=== PATIENT | male | born 1985 | race Caucasian/White ===

== ENCOUNTER 2017-07-01 07:43 | Inpatient (IN) | payer MEDICAID ==
[~2017-07-01] VITALS: Ht 190.5 cm; Wt 113.3 kg
[~2017-07-01 07:43] MED LIST: AMLO5TAB2 PO; ASPI-621 PO; DOCU-131; FURO-92 PO; IBUP200C5; METO25TA35 PO; OXYC1TAB7 PO; PANT40TA5 PO; POTA20PI5 PO; RIVA20TA PO
[2017-07-01] MEDS ORDERED: MORPHINE SULFATE 4 MG/ML, 1ML IVPush PRN (09:00)
[2017-07-01] MEDS ORDERED: SODIUM CHLORIDE FLUSH 10ML SYR IVF ONE (09:00)
[2017-07-01] MEDS ORDERED: SODIUM CHLORIDE 0.9% 1,000ML IVBOLUS ONE (09:00)
[2017-07-01] MEDS ORDERED: ONDANSETRON 2MG/ML, 2ML IVPush ONE (09:00)
[2017-07-01 09:04] LABS: HEMATOCRIT 48.8 % (39.2-51.8); HEMOGLOBIN 16.6 g/dL (13.7-18.0); WHITE BLOOD COUNT 17.3 x10^3/uL (3.4-10)
[2017-07-01 09:15] LABS: ASPARTATE AMINO TRANSFERASE 34 U/L (15-37); BLOOD UREA NITROGEN 14 mg/dL (7-18)
[2017-07-01 09:19] LABS: PATH.CAST-FLAG NOT PRESENT; SPERM-FLAG NOT PRESENT; SRC-FLAG NOT PRESENT; XTAL-FLAG NOT PRESENT; YLC-FLAG NOT PRESENT
[2017-07-01] MEDS ORDERED: ASPIRIN 81 MG TABLET CHEW ONE (10:23)
[2017-07-01] MEDS ORDERED: ASPIRIN 81 MG TABLET CHEW PO ONE (10:30)
[2017-07-01 11:29] LABS: IS PT STATUS REG ER OR PRE ER? YES
[2017-07-01 13:30] VITALS: BP 142/80
[2017-07-01 13:32] VITALS: BP 142/80
[2017-07-01] MEDS ORDERED: MULT-464 PO (13:42)
[2017-07-01] MEDS ORDERED: NITROGLYCERIN 0.4 MG/SPRAY SL PRN (14:30)
[2017-07-01] MEDS ORDERED: morphine SULFATE 10 MG/ML, 1ML IV PRN (14:30)
[2017-07-01] MEDS ORDERED: NITROGLYCERIN 0.4 MG BOTTLE (25 TABS) SL PRN (14:30)
[2017-07-01] MEDS ORDERED: NITROGLYCERIN SINGLE TAB 0.4 MG SL PRN (14:30)
[2017-07-01] MEDS ORDERED: KETOROLAC 30 MG/1 ML IM PRN ×2 (14:30→15:00)
[2017-07-01] MEDS: ENOXAPARIN 40 MG/0.4 ML SQ SCH (15:48)
[2017-07-01 18:37] LABS: IS PT STATUS REG ER OR PRE ER? NO
[2017-07-01 20:48] VITALS: BP 146/82
[2017-07-01] MEDS: SODIUM CHLORIDE FLUSH 10ML SYR IVF SCH (22:00)
[2017-07-02 02:07] VITALS: BP 126/67
[2017-07-02 04:31] LABS: HEMOGLOBIN 15.4 g/dL (13.7-18.0); WHITE BLOOD COUNT 11.1 x10^3/uL (3.4-10)
[2017-07-02 04:39] LABS: ASPARTATE AMINO TRANSFERASE 48 U/L (15-37); BLOOD UREA NITROGEN 17 mg/dL (7-18)
[2017-07-02 07:39] VITALS: BP 127/84
[2017-07-02] MEDS: METOPROLOL TARTRATE 25 MG TABLET PO SCH (08:57)
[2017-07-02] MEDS: MULTIVITAMIN 1 TABLET PO SCH (08:57)
[2017-07-02] MEDS: SODIUM CHLORIDE FLUSH 10ML SYR IVF SCH ×2 (08:57→20:35)
[2017-07-02] MEDS: AMLODIPINE 5 MG TABLET PO SCH (08:57)
[2017-07-02] MEDS: ASPIRIN 325 MG TABLET EC PO SCH (08:57)
[2017-07-02 10:59] LABS: IS PT STATUS REG ER OR PRE ER? NO
[2017-07-02 13:37] VITALS: BP 111/67
[2017-07-02] MEDS: ENOXAPARIN 40 MG/0.4 ML SQ SCH (13:46)
[2017-07-02 20:39] VITALS: BP 146/84
[2017-07-03 02:59] VITALS: BP 118/71
[2017-07-03 06:57] LABS: HEMATOCRIT 46.2 % (39.2-51.8); HEMOGLOBIN 15.7 g/dL (13.7-18.0); WHITE BLOOD COUNT 10.4 x10^3/uL (3.4-10)
[2017-07-03] MEDS ORDERED: REGADENOSON 0.4 MG/5 ML SYRINGE ONE (08:06)
[2017-07-03] MEDS: AMLODIPINE 5 MG TABLET PO SCH (11:46)
[2017-07-03] MEDS: ASPIRIN 325 MG TABLET EC PO SCH (11:46)
[2017-07-03] MEDS: MULTIVITAMIN 1 TABLET PO SCH (11:46)
[2017-07-03] MEDS: METOPROLOL TARTRATE 25 MG TABLET PO SCH (11:46)
[2017-07-03] MEDS: SODIUM CHLORIDE FLUSH 10ML SYR IVF SCH (11:47)
[2017-07-03 11:51] VITALS: BP 151/87
[2017-07-03 13:36] VITALS: BP 133/75
[2017-07-03] MEDS ORDERED: IBUP-1221 PO (14:27)
[2017-07-03] MEDS: ENOXAPARIN 40 MG/0.4 ML SQ SCH (14:30)
== END 2017-07-03 15:50 | disposition home or self-care (01) | DRG 316 ==
LOC: ED 10:30 → EDIP 11:45 → 5SO 13:25
PROVIDERS: ADMIT Internal Medicine; ATTEND Family Medicine
DX: I30.1 Infective pericarditis (principal); I11.9 Hypertensive heart disease without heart failure; F41.9 Anxiety disorder, unspecified; I35.2 Nonrheumatic aortic (valve) stenosis with insufficiency; D72.829 Elevated white blood cell count, unspecified; W57.XXXA Bitten or stung by nonvenomous insect and other nonvenomous arthropods, initial encounter; Z79.01 Long term (current) use of anticoagulants; Z80.41 Family history of malignant neoplasm of ovary; Z86.711 Personal history of pulmonary embolism; Z86.718 Personal history of other venous thrombosis and embolism; Z87.891 Personal history of nicotine dependence
CPT/HCPCS: 36415; 71020; 74020; 78452; 80053; 80061; 81001; 83605; 83690; 84484; 85025; 85379; 85651; 86140; 86788; 86789; 93005; 93017; 93306; 96360; 96361; J1650; J1885; J2785; A9502; C9898; J7030

== ENCOUNTER 2017-11-22 07:33 | Emergency (ER) | payer MEDICAID ==
[~2017-11-22] VITALS: Ht 190.5 cm; Wt 117.9 kg
[~2017-11-22 07:33] MED LIST changes: +IBUP-1221 PO; +MULT-464 PO
[2017-11-22 07:35] VITALS: BP 174/73
[2017-11-22] MEDS ORDERED: KETOROLAC 30 MG/1 ML ONE ×2 (08:28→09:09)
[2017-11-22] MEDS ORDERED: KETOROLAC 30 MG/1 ML IM ONE (08:30)
== END 2017-11-22 09:25 | disposition home or self-care (01) ==
LOC: ED 09:13
DX: S40.011A Contusion of right shoulder, initial encounter (principal); X58.XXXA Exposure to other specified factors, initial encounter; Y93.89 Activity, other specified; Y92.89 Other specified places as the place of occurrence of the external cause; Y99.8 Other external cause status
CPT/HCPCS: 73030; 96372; 99284; J1885

== ENCOUNTER → 2018-07-05 | Outpatient (CLI) | payer MEDICAID ==
[~2018-07-05] MED LIST changes: -AMLO5TAB2 PO; +AMLO5TAB7 PO; +IBUP-1623; -IBUP200C5
== END | disposition home or self-care (01) ==
LOC: CVU 07:13
PROVIDERS: ATTEND Internal Medicine Cardiovascular Disease
DX: I35.8 Other nonrheumatic aortic valve disorders (principal); I35.1 Nonrheumatic aortic (valve) insufficiency
CPT/HCPCS: 0399T; 93306

== ENCOUNTER 2019-09-11 17:20 | Emergency (ER) | payer OTHER ==
[~2019-09-11] VITALS: Ht 190.5 cm; Wt 111.5 kg
[~2019-09-11 17:20] MED LIST changes: +AMLO-150 PO; -AMLO5TAB7 PO; -ASPI-621 PO; +ASPI81TA45 PO
[2019-09-11 18:05] LABS: ALANINE AMINOTRANSFERASE 29 U/L (12-78); ALBUMIN 3.9 g/dL (3.4-5.0); ANION GAP 5 mmol/L (5-15); CALCIUM 9.2 mg/dL (8.5-10.1); CHLORIDE 108 mmol/L (98-107)
[2019-09-11 18:09] LABS: ALKALINE PHOSPHATASE 57 U/L (45-117); BILIRUBIN,TOTAL 0.6 mg/dL (0.2-1.0); CREATININE 1.05 mg/dL (0.7-1.3); TOTAL PROTEIN 7.6 g/dL (6.4-8.2); TROPONIN I < 0.015 ng/mL (0.000-0.045)
[2019-09-11 18:16] LABS: MEAN CORPUSCULAR HEMOGLOBIN 31.7 pg (27.5-34.5); MEAN CORPUSCULAR HGB CONC 32.8 g/dL (33.2-36.2); MEAN CORPUSCULAR VOLUME 96.6 fL (81-97); MEAN PLATELET VOLUME 10.4 fL (7.4-10.4); PLATELET COUNT 204 x10^3/uL (130-400); RED BLOOD COUNT 4.79 x10^6/uL (4.38-5.82); RED CELL DISTRIBUTION WIDTH 14.1 % (9.4-14.8)
[2019-09-11 18:17] LABS: BASOPHILS # (AUTO) 0.03 x10^3/uL (0-0.1); BASOPHILS % (AUTO) 0 % (0-1); EOSINOPHILS % (AUTO) 2 % (1-7); LYMPHOCYTES # (AUTO) 2.77 x10^3/uL (1-3.4); LYMPHOCYTES % (AUTO) 23 % (22-44); MONOCYTES # (AUTO) 0.93 x10^3/uL (0.2-0.8); MONOCYTES % (AUTO) 8 % (2-9); NEUTROPHILS # (AUTO) 8.17 x10^3/uL (1.8-6.8); NEUTROPHILS % (AUTO) 68 % (42-75)
[2019-09-11 18:23] LABS: MD NO
--- NOTE | 2019-09-11 19:08 | NUR ---
Assumed care of patient. C/O CP x 2 days. Reports recent stress d/t divorce. Mother at bedside. Placed on NIBp, pulse ox and awake overnight monitor. Will continue to monitor.
[2019-09-11 20:09] VITALS: BP 131/48
--- NOTE | 2019-09-11 20:11 | NUR ---
Patient/Caregiver given discharge instructions and they have confirmed that they understand the instructions. Patient ambulatory with steady gait.
== END 2019-09-12 ==
LOC: ED 20:06
DX: R07.89 Other chest pain (principal)
CPT/HCPCS: 36415; 71046; 80053; 83880; 84484; 85025; 93005; 99284

== ENCOUNTER → 2020-07-29 | Outpatient (CLI) | payer OTHER ==
[~2020-07-29] MED LIST changes: -PANT40TA5 PO; +PANT40TA6 PO
== END | disposition home or self-care (01) ==
LOC: CVU 08:25
PROVIDERS: ATTEND Internal Medicine Cardiovascular Disease
DX: I08.3 Combined rheumatic disorders of mitral, aortic and tricuspid valves (principal); I71.2 Thoracic aortic aneurysm, without rupture
CPT/HCPCS: 93306; 93356